=== PATIENT | female | born 1965 | race Caucasian/White ===

== ENCOUNTER 2018-03-15 15:56 | Emergency (ER) | payer MEDICAID, MEDICARE ==
[2018-03-15 16:09] VITALS: BMI 22.6
--- NOTE | 2018-03-15 16:45 | C.PDOC ---
History Of Present Illness 52 year old female presents to the ED c/o right elbow/forearm injury that happened [employer]. Patient states she accidentally fell s/p foosh injury, currently c /o pain to the right elbow, forearm and wrist. Patient has a nasal contusion and is right handed. Patient denies LOC, other injury, headache, nausea, dizziness, weakness, numbness. Patient was ambulatory on scene. CO R ELBOW/FOREARM INJURY ONSET [employer]. PS ACCID FELL S/P FOOSH INJURY, CO PAIN TO R ELBOW, FOREARM, WRIST. +NASAL CONTUSION. NO LOC, OTHER ASSOC SX, INJURY. AMBUL ON SCENE. R HANDED EXAM MILD DIST NONTOXIC HEENT +NASAL ABRASION, MIDLINE. NO SWELL, EPISTAXIS EXT RUE +TEND R ELBOW, LIMITED SUPINATION/PRONATION DUE TO PAIN; +MID FOREARM TEND W MILD SWELL, NO DEFORM; NO WRIST TEND, AROM WO DIFF SKIN INTACT NEURO NO FOCAL DEF REMAINDER NEG Time Seen by Provider: 03/15/18 16:34 Chief Complaint (Nursing): Upper Extremity Problem/Injury History Per: Patient History/Exam Limitations: no limitations Onset/Duration Of Symptoms: Hrs Current Symptoms Are (Timing): Still Present Quality: "Pain" Exacerbating Factor(s): Movement Recent travel outside of the [place]: No Additional History Per: Patient Past Medical History Reviewed: Historical Data, Nursing Documentation, Vital Signs Vital Signs: Last Vital Signs Temp 98.1 F 03/15/18 16:09 Pulse 75 03/15/18 16:09 Resp 16 03/15/18 16:09 BP 112/72 03/15/18 16:09 Pulse Ox 100 03/15/18 17:18 - Medical History PMH: Anxiety, Arthritis, CAD, Gastritis, HTN, Hypercholesterolemia, Hypothyroidism Denies: Chronic Kidney Disease Surgical History: Appendectomy, Coronary Stent (2013), Endoscopy Family History: States: Unknown Family Hx - Social History Hx Tobacco Use: No Hx Alcohol Use: No Hx Substance Use: No - Immunization History Hx Tetanus Toxoid Vaccination: No Hx Influenza Vaccination: No Hx Pneumococcal Vaccination: No Review Of Systems Constitutional: Negative for: Fever, Chills Cardiovascular: Negative for: Chest Pain Respiratory: Negative for: Shortness of Breath Gastrointestinal: Negative for: Nausea, Vomiting Musculoskeletal: Positive for: Arm Pain, Hand Pain Skin: Negative for: Rash Neurological: Negative for: Weakness, Numbness Physical Exam - Physical Exam Appears: Non-toxic, In Acute Distress Skin: Normal Color, Warm, Dry Head: Atraumatic, Normacephalic Eye(s): bilateral: Normal Inspection Ear(s): Bilateral: Normal Nose: No Epistaxis, Other (nasal abrasion. no swelling) Oral Mucosa: Moist Neck: Normal ROM, No Midline Cervical Tenderness, Supple Chest: Symmetrical Cardiovascular: Rhythm Regular Respiratory: Normal Breath Sounds, No Rales, No Rhonchi, No Wheezing Extremity: No Normal ROM (right elbow limited supination/pronation), Tenderness (right elbow, right mid forearm), Capillary Refill (< 2 seconds), Swelling ( right mid forearm ) Extremity: Bilateral: Normal Color And Temperature Pulses: Left Radial: Normal, Right Radial: Normal Neurological/Psych: Oriented x3, Normal Speech, Normal Motor, Normal Sensation Gait: Steady ED Course And Treatment O2 Sat by Pulse Oximetry: 100 (ON RA) Pulse Ox Interpretation: Normal - Other Rad Right elbow X-Ray X-Ray: Read By Radiologist Interpretation: PROCEDURE: Radiographs of the right elbow. HISTORY: Trauma. COMPARISON: No prior. FINDINGS: BONES: Acute fracture through the radial head. Josue remarked. JOINTS: Normal. No osteoarthritis. SOFT TISSUES: Normal. JOINT EFFUSION: None. OTHER FINDINGS: None. IMPRESSION: Acute radial head fracture. No appreciable depression of fracture fragments. . Concordant results with the preliminary interpretation rendered by the emergency department physician\\ PA at the conclusion of the procedure. Right wrist X-Ray X-Ray: Interpreted by Me, Viewed By Me Interpretation: No fracture seen Right forearm X-Ray X-Ray: Interpreted by Me, Viewed By Me Interpretation: radial head fracture Reevaluation Time: 17:51 Reassessment Condition: Improved (PT ADVISED FU ORTHO IN 1 WEEK FOR FURTHER EVAL.) Medical Decision Making Medical Decision Making: Impression: right elbow/forearm pain Plan: * Tylenol 650 mg PO * Right forearm x-Ray * Right wrist X-Ray * Right elbow X-Ray Disposition Counseled Patient/Family Regarding: Studies Performed, Diagnosis, Need For Followup, Rx Given - Disposition Referrals: Wade Horne MD [Staff Provider] - [facility] [Outside] [facility] [Outside] Disposition: HOME/ ROUTINE Disposition Time: 17:51 Condition: IMPROVED Additional Instructions: WEAR SPLINT CONTINUOUSLY UNTIL EVALUATION BY ORTHOPEDICS. SEE ORTHOPEDICS WITHIN 1 WEEK Prescriptions: Acetaminophen with Codeine [Tylenol with Codeine No. 3 300 mg-30 mg] 1 tab PO Q6 PRN #12 tab PRN Reason: Pain, Moderate (4-7) Ibuprofen [Motrin] 600 mg PO Q6 #30 tab Instructions: Elbow Fracture (DC) Forms: [employer] (Armenian) - Clinical Impression Clinical Impression: Radial head fracture, Nasal abrasion - Scribe Statement The provider has reviewed the documentation as recorded by the Scribe Osorio Finn All medical record entries made by the Scribe were at my direction and personally dictated by me. I have reviewed the chart and agree that the record accurately reflects my personal performance of the history, physical exam, medical decision making, and the department course for this patient. I have also personally directed, reviewed, and agree with the discharge instructions and disposition. Orthopedic Care Application Of:: Long-arm Splint (applied by rik Morejon, verified by me), Sling
--- NOTE | 2018-03-15 17:12 | RAD ---
PROCEDURE: Radiographs of the right elbow. HISTORY: Trauma COMPARISON: No prior. FINDINGS: BONES: Acute fracture through the radial head. Josue remarked JOINTS: Normal. No osteoarthritis. SOFT TISSUES: Normal. JOINT EFFUSION: None. OTHER FINDINGS: None. IMPRESSION: Acute radial head fracture. No appreciable depression of fracture fragments. Concordant results with the preliminary interpretation rendered by the emergency department physician procedure.
[2018-03-15 18:05] VITALS: BP 107/70; PULSE 65; RESP 18; TEMP 98.9; O2SAT 99
--- NOTE | 2018-03-16 12:44 | RAD ---
PROCEDURE: Right Wrist Radiographs. HISTORY: Trauma COMPARISON: None. FINDINGS: BONES: Bone alignment and mineralization are normal. There is no acute displaced fracture or bone destruction. JOINTS: Normal. No dislocation. SOFT TISSUES: Normal. OTHER FINDINGS: None. IMPRESSION: No acute fracture or dislocation.
--- NOTE | 2018-03-16 12:49 | RAD ---
PROCEDURE: Radiographs of the Right Forearm HISTORY: Trauma COMPARISON: None available. TECHNIQUE: Frontal and lateral views obtained. FINDINGS: BONES: Bone alignment and mineralization are normal. There is a transverse lucency in the head of the radius. JOINT SPACES: Small joint effusion. No dislocation. OTHER FINDINGS: The periarticular soft tissues are normal. IMPRESSION: Transverse lucency in the head of the radius may represent an acute nondisplaced fracture. Small joint effusion.
== END 2018-03-15 18:40 | disposition home or self-care (01) ==
LOC: C.ER 15:56
DX: S52.121A Displaced fracture of head of right radius, initial encounter for closed fracture (principal); S00.31XA Abrasion of nose, initial encounter; W19.XXXA Unspecified fall, initial encounter; I10 Essential (primary) hypertension; E78.00 Pure hypercholesterolemia, unspecified; E03.9 Hypothyroidism, unspecified; I25.10 Atherosclerotic heart disease of native coronary artery without angina pectoris

== ENCOUNTER 2018-11-18 15:18 | Outpatient (CLI) | payer MEDICARE | END 2018-11-18 15:19 | disposition home or self-care (01) | LOC: C.MRIC 15:18 | DX: M24.021 Loose body in right elbow (principal) ==

== ENCOUNTER 2018-11-19 10:59 | Outpatient (CLI) | payer MEDICARE | END 2018-11-19 11:00 | disposition home or self-care (01) | LOC: C.CTH 10:59 | DX: M24.021 Loose body in right elbow (principal) ==

== ENCOUNTER 2018-11-26 10:09 | Outpatient (CLI) | payer MEDICARE | END 2018-11-26 10:10 | disposition home or self-care (01) | LOC: C.MRIC 10:09 ==

== ENCOUNTER 2019-01-17 16:28 | Emergency (ER) | payer MEDICARE ==
[2019-01-17 16:39] VITALS: BMI 23.3
[2019-01-17] MEDS ORDERED: Naproxen 550 mg Tab PO STA (16:56)
[2019-01-17] MEDS ORDERED: Naproxen 550 mg Tab PO ONE (17:05)
[2019-01-17] MEDS ORDERED: Lidocaine 5% Patch TD STA (17:41)
--- NOTE | 2019-01-17 17:41 | RAD ---
Date of service: 01/17/2019 PROCEDURE: Radiographs of the Chest and Right Ribs. HISTORY: Right-sided rib pain, fracture suspected. No history of trauma COMPARISON: 10/23/2012 two view chest. TECHNIQUE: Frontal radiograph of the chest and multiple oblique radiographs of the right ribs were obtained. 4 views obtained. FINDINGS: RIGHT RIBS: No fracture or focal lesion visualized. LUNGS: Clear. PLEURA: No pneumothorax or pleural fluid. CARDIOVASCULAR: Normal cardiac size. No pulmonary vascular congestion. No aortic atherosclerotic calcification present OTHER FINDINGS: None. IMPRESSION: Unremarkable radiographs of the chest and right ribs. No right rib fracture.
--- NOTE | 2019-01-17 17:48 | C.PDOC ---
History Of Present Illness 53-year-old female presents to the ED for evaluation of right-sided rib pain which began around two days ago. Patient states she was in her car and over to reach for something, placing pressure between her right chest and the shifter, and felt a crack. Patient has been experiencing pain that has been worsening with taking deep breaths. Patient denies fever and shortness of breath at this time. Time Seen by Provider: 01/17/19 16:42 Chief Complaint (Nursing): Rib Injury History Per: Patient History/Exam Limitations: no limitations Onset/Duration Of Symptoms: Days (2) Current Symptoms Are (Timing): Still Present Quality: "Pain" Past Medical History Reviewed: Historical Data, Nursing Documentation, Vital Signs Vital Signs: Last Vital Signs Temp 98.1 F 01/17/19 16:40 Pulse 86 01/17/19 16:40 Resp 17 01/17/19 16:40 BP 119/82 01/17/19 16:40 Pulse Ox 99 01/17/19 16:40 Primary Care Provider: Goldie Mcmullen Medical History PMH: Anxiety, Arthritis, CAD, Gastritis, HTN, Hypercholesterolemia, Hypothyroidism Denies: Chronic Kidney Disease Surgical History: Appendectomy, Coronary Stent (2013), Endoscopy Family History: States: Unknown Family Hx - Social History Hx Tobacco Use: No Hx Alcohol Use: No Hx Substance Use: No - Immunization History Hx Tetanus Toxoid Vaccination: No Hx Influenza Vaccination: No Hx Pneumococcal Vaccination: No Review Of Systems Constitutional: Negative for: Fever, Chills Respiratory: Negative for: Shortness of Breath Musculoskeletal: Positive for: Other (right-sided rib pain ) Physical Exam - Physical Exam Appears: Non-toxic, No Acute Distress, Other (in mild pain ) Skin: Normal Color, Warm, Dry Head: Atraumatic, Normacephalic Eye(s): bilateral: Normal Inspection Oral Mucosa: Moist Chest: Symmetrical, No Deformity, Tenderness (to palpation at the anterior axillary line, immediately below the right breast.), No Ecchymosis, No Other (crepitus, lacerations, or abrasions ) Cardiovascular: Rhythm Regular, No Murmur Respiratory: Normal Breath Sounds, No Rales, No Rhonchi, No Wheezing Gastrointestinal/Abdominal: Soft, No Tenderness, No Guarding, No Rebound Extremity: Normal ROM, Capillary Refill (less than 2 seconds ) Neurological/Psych: Oriented x3, Normal Speech, Normal Cognition ED Course And Treatment O2 Sat by Pulse Oximetry: 99 (on RA) Pulse Ox Interpretation: Normal - Other Rad Ribs and Chest XR X-Ray: Viewed By Me, Read By Radiologist Interpretation: Date of service: 01/17/2019. PROCEDURE: Radiographs of the Chest and Right Ribs. HISTORY: Right-sided rib pain, fracture suspected. No history of trauma. COMPARISON: 10/23/2012 two view chest. TECHNIQUE: Frontal radiograph of the chest and multiple oblique radiographs of the right ribs were obtained. 4 views obtained. FINDINGS: RIGHT RIBS: No fracture or focal lesion visualized. LUNGS: Clear. PLEURA: No pneumothorax or pleural fluid. CARDIOVASCULAR: Normal cardiac size. No pulmonary vascular congestion. No aortic atherosclerotic calcification present. OTHER FINDINGS: None. IMPRESSION: Unremarkable radiographs of the chest and right ribs. No right rib fracture. Progress Note: Ribs and Chest XR was ordered and reviewed, results show no fractures. Naproxen PO and Lidoderm patch given. On reassesssment, patient is resting comfortably, showing no signs of distress and is stable for discharge. Patient is advised to f/u with her PMD within 1-2 days for further evaluation. Disposition Counseled Patient/Family Regarding: Studies Performed, Diagnosis, Need For Followup, Rx Given - Disposition Referrals: [facility] [Outside] Disposition: HOME/ ROUTINE Disposition Time: 18:00 Condition: STABLE Additional Instructions: FOLLOW UP WITH YOUR DOCTOR IN 1-2 DAYS USE MEDICATION FOR PAIN NEEDED RETURN TO ER IF SYMPTOMS WORSEN Prescriptions: Naproxen 375 mg PO BID PRN #20 tablet PRN Reason: pain Instructions: Bruised Rib (DC) Forms: [employer] (Andorran) Print Language: EAST TIMORESE - POA Present On Arrival: Falls Or Trauma - Clinical Impression Clinical Impression: Contusion of rib on right side - Scribe Statement The provider has reviewed the documentation as recorded by the Scribe (Kathy Greco) Provider Attestation: All medical record entries made by the Scribe were at my direction and personally dictated by me. I have reviewed the chart and agree that the record accurately reflects my personal performance of the history, physical exam, medical decision making, and the department course for this patient. I have also personally directed, reviewed, and agree with the discharge instructions and disposition.
[2019-01-17] MEDS ORDERED: Lidocaine 5% Patch TD ONE (18:00)
[2019-01-17 18:02] VITALS: BP 108/73; PULSE 72; RESP 18; TEMP 98.4
[2019-01-19 10:36] VITALS: O2SAT 99
== END 2019-01-17 18:00 | disposition home or self-care (01) ==
LOC: C.ER 16:28
DX: S20.211A Contusion of right front wall of thorax, initial encounter (principal); X50.1XXA Overexertion from prolonged static or awkward postures, initial encounter; I10 Essential (primary) hypertension; E78.00 Pure hypercholesterolemia, unspecified; E03.9 Hypothyroidism, unspecified; I25.10 Atherosclerotic heart disease of native coronary artery without angina pectoris